=== PATIENT | female | born 1945 | race Caucasian/White ===

== ENCOUNTER → 2017-11-11 | Outpatient (CLI) | payer MEDICARE, OTHER ==
[2017-11-11 12:04] LABS: Protein, Urine Quantitative 12.4 mg/dL (0.0-11.9)
== END | disposition home or self-care (01) ==
LOC: LAB SHORT 07:15 → OLS 07:15
PROVIDERS: Family Medicine
DX: E11.9 Type 2 diabetes mellitus without complications (principal)
CPT/HCPCS: 81050; 84156

== ENCOUNTER 2018-06-10 06:35 | Day surgery (SDC) | payer MEDICARE, OTHER ==
[~2018-06-10] VITALS: Ht 157.5 cm; Wt 81.5 kg
[~2018-06-10 06:35] MED LIST: ALEN70 PO; ATOR10 PO; GAVILAX17 GM PO; GLIM4 PO; LISI5 PO; MELO7.5 PO; Metformin HCl500 MG PO
== END 2018-06-10 09:35 | disposition home or self-care (01) ==
LOC: ORSCSDS 06:35
PROVIDERS: Student in an Organized Health Care Education/Training Program
PROC: 0DBL8ZX Excision of Transverse Colon, Via Natural or Artificial Opening Endoscopic, Diagnostic (ICD-10-PCS; principal; 2018-06-10 08:00)
PROC: 0DBH8ZX Excision of Cecum, Via Natural or Artificial Opening Endoscopic, Diagnostic (ICD-10-PCS; principal; 2018-06-10 08:00)
PROC: 0DBN8ZX Excision of Sigmoid Colon, Via Natural or Artificial Opening Endoscopic, Diagnostic (ICD-10-PCS; principal; 2018-06-10 08:00)
DX: R10.9 Unspecified abdominal pain (principal); K57.30 Diverticulosis of large intestine without perforation or abscess without bleeding; R15.0 Incomplete defecation; D12.0 Benign neoplasm of cecum; D12.3 Benign neoplasm of transverse colon; E11.9 Type 2 diabetes mellitus without complications; I10 Essential (primary) hypertension; Z79.899 Other long term (current) drug therapy
CPT/HCPCS: 82947; 88305; J0330; J1980; J2405; J7120

== ENCOUNTER → 2018-07-23 | Outpatient (CLI) | payer MEDICARE, OTHER | END | disposition home or self-care (01) | LOC: LAB SHORT 11:29 → LAB 11:29 | DX: R19.7 Diarrhea, unspecified (principal) | CPT/HCPCS: 87015; 87045; 87046; 87205; 87493; 87899 ==

== ENCOUNTER → 2018-11-08 | Outpatient (CLI) | payer MEDICARE, OTHER | END | disposition home or self-care (01) | LOC: LAB SHORT 07:50 → LAB 07:50 → PLD 07:50 | DX: L82.1 Other seborrheic keratosis (principal) | CPT/HCPCS: 88305 ==

== ENCOUNTER → 2019-06-24 | Outpatient (CLI) | payer MEDICARE, OTHER | END | disposition home or self-care (01) | LOC: LAB 09:00 → LAB SHORT 09:00 | DX: E11.9 Type 2 diabetes mellitus without complications (principal) | CPT/HCPCS: 82043 ==

== ENCOUNTER 2019-07-29 10:53 | Day surgery (SDC) | payer MEDICARE, OTHER ==
[~2019-07-29] VITALS: Ht 157.5 cm; Wt 78.5 kg
[2019-07-29] MEDS ORDERED: METO25ER PO (11:40)
--- NOTE | 2019-07-29 12:23 | NUR ---
DR STODDARD AT [facility]. IV METOPROLOL ORDERED IV. BR 103/74. HOLDING METOPROLOL PER DR DARDEN. HR 126 BPM ON THREE LEAD TILLER MAN.
--- NOTE | 2019-07-29 12:28 | NUR ---
DR ADELSO VEGAS WITH IV METOPOLOL NOW THAT BP 111/71.
--- NOTE | 2019-07-29 12:54 | NUR ---
07/29/19 1254 Pretty [place]agan History, Chart, Medications and Allergies reviewed before start of procedure. Patient confirms NPO status and agrees with scheduled surgery. 3-LEAD EKG REVIEWED WITH PHYSICIAN PRIOR TO START OF PROCEDURE. PATIENT DETERMINED TO BE ASA APPROPRIATE FOR PROPOFOL SEDATION PRIOR TO START OF PROCEDURE BY DR. STODDARD. MONITOR INTACT WITH CONTINUOUS PULSE OXIMETRY AND INTERMITTENT BP.
--- NOTE | 2019-07-29 14:19 | NUR ---
REPORT GIVEN TO ELSA GALDAMEZ RN.
--- NOTE | 2019-07-29 14:35 | NUR ---
Patient up to Ambulate independently. Gait steady. Discharge instructions reviewed with patient. Patient verbalizes understanding. Copy given to patient to take home. Patient States Post-Procedure ride home has been arranged. Discharged via wheelchair to private car for ride home.
== END 2019-07-29 15:29 | disposition home or self-care (01) ==
LOC: ORSCMMR 10:53 → ORD 12:30 → ORSCMMR 12:30
PROVIDERS: Student in an Organized Health Care Education/Training Program
PROC: 0DBE8ZX Excision of Large Intestine, Via Natural or Artificial Opening Endoscopic, Diagnostic (ICD-10-PCS; principal; 2019-07-29 12:30)
PROC: 0DBH8ZX Excision of Cecum, Via Natural or Artificial Opening Endoscopic, Diagnostic (ICD-10-PCS; principal; 2019-07-29 12:30)
DX: K57.32 Diverticulitis of large intestine without perforation or abscess without bleeding (principal); D12.0 Benign neoplasm of cecum; K64.8 Other hemorrhoids; I10 Essential (primary) hypertension; E11.9 Type 2 diabetes mellitus without complications; E78.5 Hyperlipidemia, unspecified; I48.91 Unspecified atrial fibrillation; Z79.01 Long term (current) use of anticoagulants; Z79.84 Long term (current) use of oral hypoglycemic drugs; Z79.899 Other long term (current) drug therapy
CPT/HCPCS: 82947; 88305; J2704; J7120

== ENCOUNTER 2019-10-12 07:09 | Day surgery (SDC) | payer MEDICARE, OTHER ==
[~2019-10-12] VITALS: Ht 162.6 cm; Wt 83.2 kg
[~2019-10-12 07:09] MED LIST changes: +METO25ER PO; +XARELTO20 MG PO
--- NOTE | 2019-10-12 09:35 | NUR ---
PT AWAKE POST PROCEDURE. DENIES ANY PAIN OR DISCOMFORT. VSS.
--- NOTE | 2019-10-12 09:42 | NUR ---
PT'S SON AT THE BEDSIDE SPEAKING WITH DR MACKEY ABOUT TEST RESULTS AND PLAN OF CARE. PT ABLE TO DRINK ORANGE JUICE WITH NO SWALLOWING DIFFICULTY.
--- NOTE | 2019-10-12 10:00 | NUR ---
IV DC'D, CATH INTACT. PT AWAKE, ALERT, AND ORIENTED. DENIES ANY DISCOMFORT. VERBALIZED UNDERSTANDING OF DC INSTRUCTIONS AND FOLLOW UP INFORMATION. OUT TO CAR VIA WHEELCHAIR, PT'S SON TO GIVE PT A RIDE HOME.
== END 2019-10-12 22:52 | disposition home or self-care (01) ==
LOC: MHTC 07:09
DX: I34.0 Nonrheumatic mitral (valve) insufficiency (principal); I10 Essential (primary) hypertension; E78.5 Hyperlipidemia, unspecified; E11.9 Type 2 diabetes mellitus without complications; Z79.84 Long term (current) use of oral hypoglycemic drugs; Z79.01 Long term (current) use of anticoagulants; Z79.899 Other long term (current) drug therapy
CPT/HCPCS: 76376; 93005; 93010; 93312; 93325; 99152; 99153; J2250; J3010; J7040

== ENCOUNTER 2019-10-25 07:15 | Day surgery (SDC) | payer MEDICARE, OTHER ==
[~2019-10-25] VITALS: Ht 160 cm; Wt 88.0 kg
[~2019-10-25 07:15] MED LIST changes: +CLOB.05TO TOP
--- NOTE | 2019-10-25 10:45 | NUR ---
PT AMBULATES TO AND FROM RESTROOM WITHOUT DIFF. VSS. NADN. CALL LIGHT WIHTIN REACH.
--- NOTE | 2019-10-25 11:15 | NUR ---
PT VERBALIZES UNDERSTANDING WRITTEN AND VERBAL ORDERS. DENIES QUESTIONS. PT R RADIAL SITE REMAINS CLEAR. NO BLEEDING OR HEMATOMA NOTED. WILL CONTINUE TO MONITOR. CALL LIGHT WITHIN REACH.
--- NOTE | 2019-10-25 12:00 | NUR ---
ALL AIR HAS BEEN REMOVED FROM RIGHT WRIST TR BAND. NO BLEEDING, SWELLING, OR BRUISING NOTED TO SITE. SLIGHT TENDERNESS NOTED TO WRIST AROUND SITE. VSS, CALL LIGHT IN REACH. WILL CONTINUE TO MONITOR SITE UNTIL PT IS DISCHARGED HOME.
--- NOTE | 2019-10-25 12:22 | NUR ---
DR SOLORZANO HERE TO DISCUSS PLAN OF CARE. VSS. NADCarlos. PT DRESSES SELF WITHOUT DIFFICULTY.
--- NOTE | 2019-10-25 12:39 | NUR ---
PT TR BAND REMOVED. DOT DRESSING IN PLACE. SMALL HEMATOMA NOTED. MANUAL PRESSURE HELD X 5 MIN. PRESSURE DSG APPLIED TO R RADIAL; WITH INSTRUCTIONS OF WHEN TO REMOVE DSG. TOLERATES WELL. VERBALIZES UNDERSTANDING. R RADIAL SPLINT IN PLACE. PT IV DC'D. CATH INTACT. PRESSURE DSG APPLIED. PT SON HERE FOR TRANSPORT. PT ESCORTED TO CAR VIA WC BY THIS NURSE.
== END 2019-10-25 12:45 | disposition home or self-care (01) ==
LOC: MHTC 07:15
PROC: B201YZZ Plain Radiography of Multiple Coronary Arteries using Other Contrast (ICD-10-PCS; principal; 2019-10-25)
PROC: 4A023N8 Measurement of Cardiac Sampling and Pressure, Bilateral, Percutaneous Approach (ICD-10-PCS; principal; 2019-10-25)
PROC: B206YZZ Plain Radiography of Right and Left Heart using Other Contrast (ICD-10-PCS; principal; 2019-10-25)
DX: I48.91 Unspecified atrial fibrillation (principal); I34.0 Nonrheumatic mitral (valve) insufficiency; I10 Essential (primary) hypertension; R78.5 Finding of other psychotropic drug in blood; I48.92 Unspecified atrial flutter; E11.9 Type 2 diabetes mellitus without complications; E78.5 Hyperlipidemia, unspecified; Z79.01 Long term (current) use of anticoagulants; Z79.84 Long term (current) use of oral hypoglycemic drugs; Z79.899 Other long term (current) drug therapy
CPT/HCPCS: 76937; 93460; 99152; 99153; C1769; C1894; J1644; J2250; J3010; J7030; Q9967

== ENCOUNTER 2020-01-17 09:56 | Day surgery (SDC) | payer MEDICARE, OTHER ==
--- NOTE | 2020-01-17 11:00 | NUR ---
Rec'd a call from Dr. Heard, pt has a critical potassium level and will be admitted to PCU 3 as soon as the room is cleaned. Pt currently in YARELIS with NS infusing. Will transfer up to room PCU 3 as soon as bed is available.
--- NOTE | 2020-01-17 12:44 | NUR ---
PT TRANSFERED TO PCU 3 DUE TO HIGH POTASSIUM. PT TAKEN UP TO NAEBEL CAM RN. REPORT Called at 1753. DR. BRIANA AUSTIN IS GOING UP TO ROOM WITH HIS MOTHER.
[2020-01-17] MEDS ORDERED: ALEN70 PO (12:55)
[2020-01-17] MEDS ORDERED: MOBIC15 MG PO (12:56)
[2020-01-17] MEDS ORDERED: ACET500 PO (12:59)
[2020-01-17] MEDS ORDERED: FURO40 PO (12:59)
[2020-01-17] MEDS ORDERED: POTA10T PO (13:00)
[2020-01-17] MEDS ORDERED: AMIODARONE HCL200 M1 PO (13:02)
[2020-01-17] MEDS ORDERED: Aspir 8181 MG PO (13:02)
== END 2020-01-17 11:26 | disposition home or self-care (01) ==
LOC: ATC 09:56
DX: Z48.812 Encounter for surgical aftercare following surgery on the circulatory system (principal); N28.9 Disorder of kidney and ureter, unspecified; E11.9 Type 2 diabetes mellitus without complications; R06.02 Shortness of breath; I10 Essential (primary) hypertension; E78.5 Hyperlipidemia, unspecified; Z98.890 Other specified postprocedural states; Z79.84 Long term (current) use of oral hypoglycemic drugs; Z79.01 Long term (current) use of anticoagulants; Z79.899 Other long term (current) drug therapy; Z79.82 Long term (current) use of aspirin
CPT/HCPCS: 96360; J7030

== ENCOUNTER 2020-01-17 11:33 | Inpatient (IN) | payer MEDICARE, OTHER ==
[~2020-01-17] VITALS: Ht 157.5 cm; Wt 79.3 kg
[2020-01-17] MEDS ORDERED: ALEN70 PO (12:55)
[2020-01-17] MEDS ORDERED: MOBIC15 MG PO (12:56)
[2020-01-17] MEDS ORDERED: ACET500 PO (12:59)
[2020-01-17] MEDS ORDERED: FURO40 PO (12:59)
[2020-01-17] MEDS ORDERED: POTA10T PO (13:00)
[2020-01-17] MEDS ORDERED: Aspir 8181 MG PO (13:02)
[2020-01-17] MEDS ORDERED: AMIODARONE HCL200 M1 PO (13:02)
[2020-01-17 13:44] LABS: Source, Urine Clean Catch
[2020-01-17 14:36] LABS: Appearance, Urine Hazy (Clear); Blood, Urine 4+ (Neg); Color, Urine Yellow (P-Yellow); Glucose Qualitative, Urine 2+ (Neg); Ketones, Urine 1+ (Neg); Leukocyte Esterase, Urine 3+ (Neg); Nitrite, Urine Neg (Neg); Protein, Urine 2+ (Neg); Specific Gravity, Urine 1.025 (1.003-1.022); Urobilinogen, Urine NORM (Normal)
[2020-01-17 14:46] LABS: CPK Creatine Kinase 66 U/L (26-193); Uric Acid, Blood 8.7 mg/dL (2.6-6.0)
[2020-01-17 14:50] LABS: Bilirubin, Urine 2+ (Neg)
[2020-01-17 14:52] LABS: Bacteria Mod /hpf; Mucus Light (0-Heavy); Squamous Epithelial Cells Few /hpf (Few)
[2020-01-17 15:02] LABS: Albumin, Blood 2.6 g/dL (3.4-5.0); Anion Gap 9 mmol/L (6-16); Blood Urea Nitrogen 76 mg/dL (8-24); Bun/Creatinine Ratio 25.6 (12.0-20.0); CO2, Blood 14 mmol/L (21-32); Calcium, Blood 8.3 mg/dL (8.5-10.1); Chloride, Blood 112 mmol/L (98-108); Creatinine, Blood 2.97 mg/dL (0.40-1.00); Glomerular Filtration Rate 16 (60-); Glucose, Blood 283 mg/dL (70-99); Phosphorus, Blood 4.2 mg/dL (2.5-4.9); Potassium, Blood 6.4 mmol/L (3.5-5.5); Sodium, Blood 135 mmol/L (136-145)
[2020-01-17 18:08] LABS: Albumin, Blood 2.7 g/dL (3.4-5.0); Anion Gap 9 mmol/L (6-16); Blood Urea Nitrogen 74 mg/dL (8-24); Bun/Creatinine Ratio 24.1 (12.0-20.0); CO2, Blood 16 mmol/L (21-32); Calcium, Blood 8.2 mg/dL (8.5-10.1); Chloride, Blood 112 mmol/L (98-108); Creatinine, Blood 3.07 mg/dL (0.40-1.00); Glomerular Filtration Rate 16 (60-); Glucose, Blood 159 mg/dL (70-99); Phosphorus, Blood 4.1 mg/dL (2.5-4.9); Potassium, Blood 5.2 mmol/L (3.5-5.5); Sodium, Blood 137 mmol/L (136-145)
[2020-01-18 04:55] LABS: BASOPHILS ABSOLUTE AUTO 0.01 K/mm3 (0.00-0.23); BASOPHILS PERCENT AUTO 0 % (0-2); Hematocrit 25.5 % (33.0-51.0); LYMPHOCYTES ABSOLUTE AUTO 0.82 K/mm3 (0.84-5.20); LYMPHOCYTES PERCENT AUTO 8 % (21-46); MONOCYTES PERCENT AUTO 7 % (4-13); Mean Corpuscular HGB 30.7 pg (26.0-34.0); Mean Corpuscular HGB Conc 31.4 g/dL (31.5-36.5); Mean Corpuscular Volume 98 fL (80-100); Mean Platelet Volume 9.1 fL (9.1-12.4); Platelet Count 235 K/mm3 (150-400); RDW Coefficient Variation 15.5 % (11.7-14.2); RDW Standard Deviation 55.7 fL (35.1-46.3); Red Blood Cell Count 2.61 M/mm3 (3.80-5.20); White Blood Cell Count 10.83 K/mm3 (4.00-11.30)
[2020-01-18 04:56] LABS: EOSINOPHILS ABSOLUTE AUTO 0.03 K/mm3 (0.00-0.68); EOSINOPHILS PERCENT AUTO 0 % (0-6); IMMATURE GRAN ABSOLUTE AUTO 0.07 K/mm3 (0.00-0.10); IMMATURE GRAN PERCENT AUTO 1 % (0-1); NEUTROPHILS PERCENT AUTO 85 % (41-73)
[2020-01-18 05:23] LABS: Albumin, Blood 2.5 g/dL (3.4-5.0); Albumin/Globulin Ratio 0.8 (0.8-1.8); Bilirubin, Total 0.3 mg/dL (0.1-1.0); Calcium, Blood 7.6 mg/dL (8.5-10.1); Globulin, Blood 3.1 g/dL (2.2-4.0); Potassium, Blood 4.2 mmol/L (3.5-5.5); Total Protein, Blood 5.6 g/dL (6.4-8.2)
[2020-01-18 07:34] LABS: Percent Saturation 23.2 % (15.0-50.0)
[2020-01-18 08:49] LABS: Hematocrit 25.5 % (33.0-51.0); Hemoglobin 8.2 g/dL (11.5-16.0); Mean Corpuscular HGB 31.1 pg (26.0-34.0); Mean Corpuscular HGB Conc 32.2 g/dL (31.5-36.5); Mean Corpuscular Volume 97 fL (80-100); Mean Platelet Volume 8.9 fL (9.1-12.4); Platelet Count 214 K/mm3 (150-400); RDW Coefficient Variation 15.7 % (11.7-14.2); RDW Standard Deviation 55.4 fL (35.1-46.3); Red Blood Cell Count 2.64 M/mm3 (3.80-5.20); White Blood Cell Count 10.56 K/mm3 (4.00-11.30)
[2020-01-18 17:45] LABS: Albumin, Blood 2.2 g/dL (3.4-5.0); Anion Gap 10 mmol/L (6-16); Blood Urea Nitrogen 69 mg/dL (8-24); Bun/Creatinine Ratio 24.5 (12.0-20.0); CO2, Blood 20 mmol/L (21-32); Calcium, Blood 7.2 mg/dL (8.5-10.1); Chloride, Blood 109 mmol/L (98-108); Creatinine, Blood 2.82 mg/dL (0.40-1.00); Glomerular Filtration Rate 17 (60-); Glucose, Blood 108 mg/dL (70-99); Potassium, Blood 3.5 mmol/L (3.5-5.5); Sodium, Blood 139 mmol/L (136-145)
[2020-01-19 04:24] LABS: Hematocrit 21.6 % (33.0-51.0); Hemoglobin 7.1 g/dL (11.5-16.0); Mean Corpuscular HGB 31.6 pg (26.0-34.0); Mean Corpuscular HGB Conc 32.9 g/dL (31.5-36.5); Mean Corpuscular Volume 96 fL (80-100); Platelet Count 171 K/mm3 (150-400); RDW Coefficient Variation 15.5 % (11.7-14.2); RDW Standard Deviation 54.1 fL (35.1-46.3); Red Blood Cell Count 2.25 M/mm3 (3.80-5.20); White Blood Cell Count 11.27 K/mm3 (4.00-11.30)
[2020-01-19 04:43] LABS: Albumin, Blood 2.1 g/dL (3.4-5.0); Albumin/Globulin Ratio 0.7 (0.8-1.8); Bilirubin, Total 0.2 mg/dL (0.1-1.0); Calcium, Blood 7.5 mg/dL (8.5-10.1); Creatinine, Blood 2.56 mg/dL (0.40-1.00); Globulin, Blood 3.1 g/dL (2.2-4.0); Potassium, Blood 3.3 mmol/L (3.5-5.5); Total Protein, Blood 5.2 g/dL (6.4-8.2)
[2020-01-19 05:13] LABS: BAND PERCENT MAN 20 % (0-8); BASOPHILS PERCENT MAN 0 % (0-2); EOSINOPHILS ABSOLUTE MAN 0.11 K/mm3 (0.00-0.68); EOSINOPHILS PERCENT MAN 1 % (0-6); LYMPHOCYTES ABSOLUTE MAN 0.33 K/mm3 (0.84-5.20); LYMPHOCYTES PERCENT MAN 3 % (21-46); MONOCYTES ABSOLUTE MAN 0.45 K/mm3 (0.16-1.47); MONOCYTES PERCENT MAN 4 % (4-13); MYELOCYTE ABSOLUTE MAN 0.11 K/mm3 (0.00-0.00); MYELOCYTE PERCENT MAN 1 % (0-0); NEUTROPHILS ABSOLUTE MAN 10.25 K/mm3 (1.96-9.15); SEG NEUTROPHILS PERCENT MAN 71 % (41-73); TOTAL CELLS COUNTED 100
[2020-01-19 05:52] LABS: Source, Urine Voided
[2020-01-19 06:07] LABS: Bilirubin, Urine Neg (Neg); Blood, Urine 1+ (Neg); Glucose Qualitative, Urine Neg (Neg); Ketones, Urine Neg (Neg); Leukocyte Esterase, Urine Neg (Neg); Nitrite, Urine Neg (Neg); Protein, Urine Neg (Neg); Urobilinogen, Urine NORM (Normal)
[2020-01-19 06:21] LABS: Appearance, Urine Clear (Clear); Color, Urine Yellow (P-Yellow)
[2020-01-19 06:23] LABS: Bacteria Many /hpf; Red Blood Cells, Urine 0-2 /hpf (0-2); Squamous Epithelial Cells Mod /hpf (Few)
[2020-01-19 06:24] LABS: Amorphous Light (0-Heavy)
[2020-01-19 14:14] LABS: Hematocrit 26.4 % (33.0-51.0); Hemoglobin 8.6 g/dL (11.5-16.0); Mean Corpuscular HGB 30.9 pg (26.0-34.0); Mean Corpuscular HGB Conc 32.6 g/dL (31.5-36.5); Mean Corpuscular Volume 95 fL (80-100); Platelet Count 183 K/mm3 (150-400); RDW Coefficient Variation 15.7 % (11.7-14.2); Red Blood Cell Count 2.78 M/mm3 (3.80-5.20); White Blood Cell Count 13.11 K/mm3 (4.00-11.30)
[2020-01-19 14:34] LABS: Albumin, Blood 2.1 g/dL (3.4-5.0); Anion Gap 9 mmol/L (6-16); Blood Urea Nitrogen 55 mg/dL (8-24); Bun/Creatinine Ratio 23.1 (12.0-20.0); CO2, Blood 20 mmol/L (21-32); Calcium, Blood 7.8 mg/dL (8.5-10.1); Chloride, Blood 107 mmol/L (98-108); Creatinine, Blood 2.38 mg/dL (0.40-1.00); Glomerular Filtration Rate 21 (60-); Glucose, Blood 148 mg/dL (70-99); Phosphorus, Blood 2.8 mg/dL (2.5-4.9); Potassium, Blood 3.9 mmol/L (3.5-5.5); Sodium, Blood 136 mmol/L (136-145)
[2020-01-19 14:39] LABS: BAND PERCENT MAN 13 % (0-8); BASOPHILS PERCENT MAN 0 % (0-2); EOSINOPHILS ABSOLUTE MAN 0.13 K/mm3 (0.00-0.68); EOSINOPHILS PERCENT MAN 1 % (0-6); LYMPHOCYTES ABSOLUTE MAN 1.57 K/mm3 (0.84-5.20); LYMPHOCYTES PERCENT MAN 12 % (21-46); MONOCYTES ABSOLUTE MAN 0.52 K/mm3 (0.16-1.47); MONOCYTES PERCENT MAN 4 % (4-13); NEUTROPHILS ABSOLUTE MAN 10.88 K/mm3 (1.96-9.15); SEG NEUTROPHILS PERCENT MAN 70 % (41-73); TOTAL CELLS COUNTED 100
[2020-01-20 05:32] LABS: BASOPHILS ABSOLUTE AUTO 0.03 K/mm3 (0.00-0.23); BASOPHILS PERCENT AUTO 0 % (0-2); EOSINOPHILS ABSOLUTE AUTO 0.09 K/mm3 (0.00-0.68); EOSINOPHILS PERCENT AUTO 1 % (0-6); Hematocrit 26.3 % (33.0-51.0); Hemoglobin 8.6 g/dL (11.5-16.0); IMMATURE GRAN ABSOLUTE AUTO 0.56 K/mm3 (0.00-0.10); IMMATURE GRAN PERCENT AUTO 5 % (0-1); LYMPHOCYTES ABSOLUTE AUTO 1.13 K/mm3 (0.84-5.20); LYMPHOCYTES PERCENT AUTO 9 % (21-46); MONOCYTES ABSOLUTE AUTO 1.01 K/mm3 (0.16-1.47); MONOCYTES PERCENT AUTO 8 % (4-13); Mean Corpuscular HGB 31.2 pg (26.0-34.0); Mean Corpuscular HGB Conc 32.7 g/dL (31.5-36.5); Mean Corpuscular Volume 95 fL (80-100); Mean Platelet Volume 9.4 fL (9.1-12.4); NEUTROPHILS ABSOLUTE AUTO 9.63 K/mm3 (1.96-9.15); NEUTROPHILS PERCENT AUTO 77 % (41-73); Platelet Count 195 K/mm3 (150-400); RDW Coefficient Variation 16.4 % (11.7-14.2); RDW Standard Deviation 56.8 fL (35.1-46.3); Red Blood Cell Count 2.76 M/mm3 (3.80-5.20); White Blood Cell Count 12.45 K/mm3 (4.00-11.30)
[2020-01-20 05:54] LABS: Albumin, Blood 2.3 g/dL (3.4-5.0); Albumin/Globulin Ratio 0.6 (0.8-1.8); Bilirubin, Total 0.3 mg/dL (0.1-1.0); Bun/Creatinine Ratio 22.4 (12.0-20.0); Calcium, Blood 7.9 mg/dL (8.5-10.1); Creatinine, Blood 2.05 mg/dL (0.40-1.00); Globulin, Blood 3.6 g/dL (2.2-4.0); Potassium, Blood 4.1 mmol/L (3.5-5.5); Total Protein, Blood 5.9 g/dL (6.4-8.2)
[2020-01-20 13:09] LABS: ANA DIRECT Negative (Negative); ANTIMYELOPEROXIDASE (MPO) ABS <9.0 U/mL (0.0-9.0); ANTIPROTEINASE 3 (PR-3) ABS <3.5 U/mL (0.0-3.5); ATYPICAL PANCA <1:20 titer (Neg:<1:20); CYTOPLASMIC (C-ANCA) <1:20 titer (Neg:<1:20); PERINUCLEAR (P-ANCA) <1:20 titer (Neg:<1:20)
[2020-01-20 15:09] LABS: A/G RATIO 1.2 (0.7-1.7); ALBUMIN 2.6 g/dL (2.9-4.4); ALPHA-1-GLOBULIN 0.3 g/dL (0.0-0.4); ALPHA-2-GLOBULIN 0.8 g/dL (0.4-1.0); BETA GLOBULIN 0.6 g/dL (0.7-1.3); GAMMA GLOBULIN 0.5 g/dL (0.4-1.8); GLOBULIN, TOTAL 2.2 g/dL (2.2-3.9); IMMUNOGLOBULIN A, QN, SERUM 116 mg/dL (64-422); IMMUNOGLOBULIN G, QN, SERUM 539 mg/dL (586-1602); IMMUNOGLOBULIN M, QN, SERUM 63 mg/dL (26-217); M-SPIKE Not Observed g/dL (Not Observed); PROTEIN, TOTAL, SERUM 4.8 g/dL (6.0-8.5)
[2020-01-21 05:08] LABS: BASOPHILS ABSOLUTE AUTO 0.05 K/mm3 (0.00-0.23); BASOPHILS PERCENT AUTO 0 % (0-2); EOSINOPHILS ABSOLUTE AUTO 0.14 K/mm3 (0.00-0.68); EOSINOPHILS PERCENT AUTO 1 % (0-6); Hematocrit 27.5 % (33.0-51.0); Hemoglobin 8.7 g/dL (11.5-16.0); IMMATURE GRAN PERCENT AUTO 4 % (0-1); LYMPHOCYTES PERCENT AUTO 12 % (21-46); MONOCYTES ABSOLUTE AUTO 1.23 K/mm3 (0.16-1.47); MONOCYTES PERCENT AUTO 11 % (4-13); Mean Corpuscular HGB 30.4 pg (26.0-34.0); Mean Corpuscular HGB Conc 31.6 g/dL (31.5-36.5); Mean Corpuscular Volume 96 fL (80-100); Mean Platelet Volume 9.2 fL (9.1-12.4); NEUTROPHILS ABSOLUTE AUTO 8.12 K/mm3 (1.96-9.15); NEUTROPHILS PERCENT AUTO 72 % (41-73); Platelet Count 200 K/mm3 (150-400); RDW Coefficient Variation 16.3 % (11.7-14.2); RDW Standard Deviation 58.2 fL (35.1-46.3); Red Blood Cell Count 2.86 M/mm3 (3.80-5.20); White Blood Cell Count 11.34 K/mm3 (4.00-11.30)
[2020-01-21 05:38] LABS: Albumin, Blood 2.2 g/dL (3.4-5.0); Albumin/Globulin Ratio 0.6 (0.8-1.8); Bilirubin, Total 0.3 mg/dL (0.1-1.0); Bun/Creatinine Ratio 20.6 (12.0-20.0); Calcium, Blood 7.9 mg/dL (8.5-10.1); Creatinine, Blood 1.65 mg/dL (0.40-1.00); Globulin, Blood 3.7 g/dL (2.2-4.0); Potassium, Blood 4.3 mmol/L (3.5-5.5); Total Protein, Blood 5.9 g/dL (6.4-8.2)
[2020-01-22 09:59] LABS: Hematocrit 28.3 % (33.0-51.0); Hemoglobin 8.8 g/dL (11.5-16.0); Mean Corpuscular HGB 30.4 pg (26.0-34.0); Mean Corpuscular HGB Conc 31.1 g/dL (31.5-36.5); Mean Corpuscular Volume 98 fL (80-100); Mean Platelet Volume 8.9 fL (9.1-12.4); Platelet Count 196 K/mm3 (150-400); RDW Coefficient Variation 16.2 % (11.7-14.2); Red Blood Cell Count 2.89 M/mm3 (3.80-5.20); White Blood Cell Count 10.48 K/mm3 (4.00-11.30)
[2020-01-22 10:13] LABS: Bun/Creatinine Ratio 18.3 (12.0-20.0); Calcium, Blood 7.9 mg/dL (8.5-10.1); Creatinine, Blood 1.42 mg/dL (0.40-1.00); Potassium, Blood 4.7 mmol/L (3.5-5.5)
[2020-01-23 09:51] LABS: Bun/Creatinine Ratio 16.2 (12.0-20.0); Calcium, Blood 8.2 mg/dL (8.5-10.1); Creatinine, Blood 1.36 mg/dL (0.40-1.00); Potassium, Blood 4.6 mmol/L (3.5-5.5)
[2020-01-24 05:47] LABS: Hematocrit 28.6 % (33.0-51.0); Mean Corpuscular HGB 30.4 pg (26.0-34.0); Mean Corpuscular HGB Conc 31.5 g/dL (31.5-36.5); Mean Corpuscular Volume 97 fL (80-100); Mean Platelet Volume 9.3 fL (9.1-12.4); Platelet Count 219 K/mm3 (150-400); RDW Coefficient Variation 15.9 % (11.7-14.2); RDW Standard Deviation 55.9 fL (35.1-46.3); Red Blood Cell Count 2.96 M/mm3 (3.80-5.20); White Blood Cell Count 8.91 K/mm3 (4.00-11.30)
[2020-01-24 05:53] LABS: Bun/Creatinine Ratio 18.9 (12.0-20.0); Calcium, Blood 8.2 mg/dL (8.5-10.1); Creatinine, Blood 1.32 mg/dL (0.40-1.00); Potassium, Blood 4.5 mmol/L (3.5-5.5)
[2020-01-24] MEDS ORDERED: ATOR20 PO (10:37)
[2020-01-24] MEDS ORDERED: DOCU100 PO (10:38)
[2020-01-24] MEDS ORDERED: BASAGLAR K100 UNIT/1 SC (10:39)
[2020-01-24] MEDS ORDERED: INSULIN LI100 UNIT/6 (10:43)
[2020-01-24] MEDS ORDERED: NYAMYC15 G1 TOP (10:44)
[2020-01-24] MEDS ORDERED: TRAM50 PO (10:45)
== END 2020-01-24 13:01 | DRG 683 ==
LOC: PCU 11:33 → MEDS 11:55
PROVIDERS: Internal Medicine; ADMIT Internal Medicine Interventional Cardiology
PROC: 30233N1 Transfusion of Nonautologous Red Blood Cells into Peripheral Vein, Percutaneous Approach (ICD-10-PCS; principal; 2020-01-19)
DX: N17.9 Acute kidney failure, unspecified (principal); S22.31XA Fracture of one rib, right side, initial encounter for closed fracture; E87.2 Acidosis; N39.0 Urinary tract infection, site not specified; Z20.828 Contact with and (suspected) exposure to other viral communicable diseases; L89.322 Pressure ulcer of left buttock, stage 2; E87.5 Hyperkalemia; D63.8 Anemia in other chronic diseases classified elsewhere; E11.649 Type 2 diabetes mellitus with hypoglycemia without coma; E78.5 Hyperlipidemia, unspecified; E86.0 Dehydration; E87.70 Fluid overload, unspecified; I44.0 Atrioventricular block, first degree; I12.9 Hypertensive chronic kidney disease with stage 1 through stage 4 chronic kidney disease, or unspecified chronic kidney disease; E11.22 Type 2 diabetes mellitus with diabetic chronic kidney disease; N18.3 Chronic kidney disease, stage 3 (moderate); I48.0 Paroxysmal atrial fibrillation; I95.9 Hypotension, unspecified; Z95.2 Presence of prosthetic heart valve; M81.0 Age-related osteoporosis without current pathological fracture; R54 Age-related physical debility; X58.XXXA Exposure to other specified factors, initial encounter; K59.00 Constipation, unspecified; B96.20 Unspecified Escherichia coli [E. coli] as the cause of diseases classified elsewhere
CPT/HCPCS: 36415; 36430; 51701; 71045; 74176; 76770; 80048; 80053; 80069; 81001; 82306; 82330; 82550; 82728; 82784; 82947; 83520; 83540; 83550; 83605; 83735; 83880; 84100; 84132; 84165; 84550; 85025; 85027; 86256; 86334; 86850; 86900; 86901; 86923; 87040; 87077; 87086; 87186; 93005; 93010; 97110; 97116; 97162; 97530; A9270; A9270-GY; J0696; J1644; J1815; J2405; J7030; J7050; J7070; J7799; P9016; U0002

== ENCOUNTER → 2020-02-28 | Outpatient (CLI) | payer MEDICARE, OTHER ==
[~2020-02-28] MED LIST changes: +ACET500 PO; +AMIODARONE HCL200 M1 PO; +ATOR20 PO; +Aspir 8181 MG PO; +BASAGLAR K100 UNIT/1 SC; +DOCU100 PO; +FURO40 PO; +INSULIN LI100 UNIT/6; +MOBIC15 MG PO; +NYAMYC15 G1 TOP; +POTA10T PO; +TRAM50 PO
== END | disposition home or self-care (01) ==
LOC: LAB 10:43 → LAB SHORT 10:43
DX: E11.9 Type 2 diabetes mellitus without complications (principal); L98.429 Non-pressure chronic ulcer of back with unspecified severity
CPT/HCPCS: 87070; 87205

== ENCOUNTER → 2020-07-09 | Outpatient (CLI) | payer MEDICARE, OTHER | END | disposition home or self-care (01) | LOC: LAB 17:53 → LAB SHORT 17:53 | DX: Q82.6 Congenital sacral dimple (principal) | CPT/HCPCS: 87070; 87075; 87205 ==

== ENCOUNTER 2021-05-06 16:34 | Inpatient (IN) | payer MEDICARE, OTHER ==
[~2021-05-06] VITALS: Ht 162.6 cm; Wt 78.6 kg
[~2021-05-06 16:34] MED LIST changes: -ATOR20 PO; +FERSU300 PO; +PROM25 PO; +ROXICODONE5 MG PO; +SULTRIDS PO; -XARELTO20 MG PO
[2021-05-06 17:17] LABS: BASOPHILS ABSOLUTE AUTO 0.07 K/mm3 (0.00-0.23); BASOPHILS PERCENT AUTO 1 % (0-2); EOSINOPHILS ABSOLUTE AUTO 0.09 K/mm3 (0.00-0.68); EOSINOPHILS PERCENT AUTO 1 % (0-6); Hematocrit 27.6 % (33.0-51.0); Hemoglobin 8.9 g/dL (11.5-16.0); IMMATURE GRAN ABSOLUTE AUTO 0.18 K/mm3 (0.00-0.10); IMMATURE GRAN PERCENT AUTO 1 % (0-1); LYMPHOCYTES ABSOLUTE AUTO 1.76 K/mm3 (0.84-5.20); LYMPHOCYTES PERCENT AUTO 12 % (21-46); MONOCYTES PERCENT AUTO 12 % (4-13); Mean Corpuscular HGB 30.8 pg (26.0-34.0); Mean Corpuscular HGB Conc 32.2 g/dL (31.5-36.5); Mean Corpuscular Volume 96 fL (80-100); Mean Platelet Volume 8.7 fL (9.1-12.4); NEUTROPHILS ABSOLUTE AUTO 10.69 K/mm3 (1.96-9.15); NEUTROPHILS PERCENT AUTO 74 % (41-73); Platelet Count 545 K/mm3 (150-400); RDW Coefficient Variation 14.6 % (11.7-14.2); RDW Standard Deviation 50.5 fL (35.1-46.3); Red Blood Cell Count 2.89 M/mm3 (3.80-5.20); White Blood Cell Count 14.49 K/mm3 (4.00-11.30)
[2021-05-06 17:27] LABS: Source, Urine Catheter
[2021-05-06 17:29] LABS: Acetaminophen, Random <2.0 ug/mL (10.0-30.0); Alanine Aminotransfer (ALT/SGP 32 U/L (12-78); Albumin, Blood 3.1 g/dL (3.4-5.0); Albumin/Globulin Ratio 0.8 (0.8-1.8); Alk Phos 122 U/L (50-136); Anion Gap 12 mmol/L (6-16); Aspartate Aminotrans (AST/SGOT 24 U/L (12-37); Bilirubin, Total 0.8 mg/dL (0.1-1.0); Blood Urea Nitrogen 33 mg/dL (8-24); Bun/Creatinine Ratio 22.9 (12.0-20.0); CO2, Blood 20 mmol/L (21-32); Calcium, Blood 9.7 mg/dL (8.5-10.1); Chloride, Blood 102 mmol/L (98-108); Creatinine, Blood 1.44 mg/dL (0.40-1.00); Globulin, Blood 4.1 g/dL (2.2-4.0); Glomerular Filtration Rate 35 (60-); Glucose, Blood 174 mg/dL (70-99); Potassium, Blood 4.3 mmol/L (3.5-5.5); Salicylate <1.7 mg/dL (2.8-20.0); Sodium, Blood 134 mmol/L (136-145); Total Protein, Blood 7.2 g/dL (6.4-8.2); Troponin I <0.015 ng/mL (0.000-0.040)
[2021-05-06 17:33] LABS: Appearance, Urine Clear (Clear); Bilirubin, Urine Neg (Neg); Blood, Urine 5+ (Neg); Color, Urine Yellow (P-Yellow); Glucose Qualitative, Urine Neg (Neg); Ketones, Urine Neg (Neg); Leukocyte Esterase, Urine 1+ (Neg); Nitrite, Urine Neg (Neg); Protein, Urine 1+ (Neg); Urobilinogen, Urine NORM (Normal)
[2021-05-06 18:00] LABS: Amorphous Light (0-Heavy); Bacteria Few /hpf; Squamous Epithelial Cells Few /hpf (Few)
[2021-05-06] MEDS ORDERED: ACET500 PO (20:49)
[2021-05-06] MEDS ORDERED: ATOR10 PO (20:51)
[2021-05-06] MEDS ORDERED: Trulicity SC (20:52)
[2021-05-06] MEDS ORDERED: Lopressor 25 mg25 MG PO (20:54)
[2021-05-06] MEDS ORDERED: XARELTO10 M1 PO (20:55)
--- NOTE | 2021-05-06 23:43 | NUR ---
REVEIVED PT FROM ER, ALERT BUT NOT ORIENTED, NOT ABLE TO ANSWER INTAKE QUESTIONS. PT IV WNL AND INFUSING NS AND ABT'S. PT MAKES NO COMPLAINTS AT THIS TIME. WILL CONTINUE WITH INTAKE QUESTIONS IN THE MORNING WITH FAMILY.
[2021-05-07 05:39] LABS: Hematocrit 22.7 % (33.0-51.0); Hemoglobin 7.3 g/dL (11.5-16.0); Mean Corpuscular HGB 31.5 pg (26.0-34.0); Mean Corpuscular HGB Conc 32.2 g/dL (31.5-36.5); Mean Corpuscular Volume 98 fL (80-100); Mean Platelet Volume 8.8 fL (9.1-12.4); Platelet Count 430 K/mm3 (150-400); RDW Coefficient Variation 14.8 % (11.7-14.2); RDW Standard Deviation 51.9 fL (35.1-46.3); Red Blood Cell Count 2.32 M/mm3 (3.80-5.20); White Blood Cell Count 13.79 K/mm3 (4.00-11.30)
--- NOTE | 2021-05-07 05:43 | NUR ---
PT HAS SLEPT FOR MOST OF THE NIGHT, REMAINS CONFUSED AND NOT BLE TO ANSWER INTAKE QUESTIONS. ADMISSION ASSESSMENT COMPLETE. IV ABTS INFUSING AND BOTH SITES WNL. PT ABLE TO SHIFT WEIGHT IN BED, OTHERWISE ON BEDREST. NO OTHER CHANGES TO REPORT. BED IN LOW POSITION AND CALL LIGHT WITHIN REACH. STAFF WILL CONTINUE TO MONITOR.
[2021-05-07 06:22] LABS: Bun/Creatinine Ratio 20.4 (12.0-20.0); Calcium, Blood 8.2 mg/dL (8.5-10.1); Creatinine, Blood 1.47 mg/dL (0.40-1.00); Potassium, Blood 4.7 mmol/L (3.5-5.5)
--- NOTE | 2021-05-07 07:58 | NUR ---
PT HAS STARTED SHIFT VERY CONFUSED AND HAS TRIED TO CRAWL OUT OF BED.PT WAS REDIRECTED AND SETTLED BACK TO BED. BP WAS LOW AT 94/60 AND APPEARS TO HAVE BEEN TRENDING DOWN SINCE SHE ARRIVED. DR DWYER WAS NOTIFIED AND FLUID BOLUS WAS ORDERED TO EMAR. WILL CONTINUE TO MONITOR CLOSELY.
[2021-05-07 10:18] LABS: Hemoglobin 7.7 g/dL (11.5-16.0); Mean Corpuscular HGB 31.3 pg (26.0-34.0); Mean Corpuscular HGB Conc 32.1 g/dL (31.5-36.5); Mean Corpuscular Volume 98 fL (80-100); Mean Platelet Volume 8.5 fL (9.1-12.4); Platelet Count 417 K/mm3 (150-400); RDW Coefficient Variation 14.6 % (11.7-14.2); RDW Standard Deviation 51.4 fL (35.1-46.3); Red Blood Cell Count 2.46 M/mm3 (3.80-5.20); White Blood Cell Count 13.54 K/mm3 (4.00-11.30)
--- NOTE | 2021-05-07 15:44 | NUR ---
Pt. was in bed but alert. Son of pt. was present. Pt. not interested in spiritual care. Pastoral prayer was declined.
[2021-05-07 16:48] LABS: Adenovirus Not Detected (NOT DETECT); Bordetella pertussis Not Detected (NOT DETECT); Chlamydophila pneumoniae Not Detected (NOT DETECT); Coronavirus 229E Not Detected (NOT DETECT); Coronavirus HKU1 Not Detected (NOT DETECT); Coronavirus NL63 Not Detected (NOT DETECT); Coronavirus OC43 Not Detected (NOT DETECT); Human Metapneumovirus Not Detected (NOT DETECT); Human Rhinovirus/Enterovirus Not Detected (NOT DETECT); Influenza A/2009-H1 Not Detected (NOT DETECT); Influenza A/H1 Not Detected (NOT DETECT); Influenza A/H3 Not Detected (NOT DETECT); Influenza B Not Detected (NOT DETECT); Mycoplasma pneumoniae Not Detected (NOT DETECT); Parainfluenza Virus 1 Not Detected (NOT DETECT); Parainfluenza Virus 2 Not Detected (NOT DETECT); Parainfluenza Virus 3 Not Detected (NOT DETECT); Parainfluenza Virus 4 Not Detected (NOT DETECT); Respiratory Syncytial Virus Not Detected (NOT DETECT); SARS-Cov-2 (COVID-19), BioFire Not Detected (NOT DETECT)
--- NOTE | 2021-05-07 17:19 | NUR ---
PT AOX1 AND COOPERATIVE OF CARE. PT STILL VERY TIRED AND CONFUSED HAS MADE MILD PROGRESS THROUGHOUT THE SHIFT. PT WAS ABLE TO TRANSFER WELL WITH GAITBELT AND WALKER WITH PT AND AID TODAY. BED ALARM AND CHAIR ALARM USED PT IS IMPULSIVE AND WILL NOT YET USE CALL LIGHT. CALL LIGHT WITHIN REACH WILL CONTINUE TO MONITOR.
[2021-05-08 05:36] LABS: Hematocrit 21.8 % (33.0-51.0); Hemoglobin 6.7 g/dL (11.5-16.0); Mean Corpuscular HGB 30.5 pg (26.0-34.0); Mean Corpuscular HGB Conc 30.7 g/dL (31.5-36.5); Mean Corpuscular Volume 99 fL (80-100); Mean Platelet Volume 8.8 fL (9.1-12.4); Platelet Count 457 K/mm3 (150-400); RDW Coefficient Variation 14.8 % (11.7-14.2); RDW Standard Deviation 53.2 fL (35.1-46.3); White Blood Cell Count 13.84 K/mm3 (4.00-11.30)
--- NOTE | 2021-05-08 06:16 | NUR ---
A&OX4, PATIENT MENTATION CLEARING SIGNIFICANTLY, DRESSING TO L KNEE/HO CDI. BED ALARM ON, CALL LIGHT WITHIN REACH.
[2021-05-08 06:27] LABS: Bun/Creatinine Ratio 23.6 (12.0-20.0); Calcium, Blood 7.8 mg/dL (8.5-10.1); Creatinine, Blood 1.23 mg/dL (0.40-1.00); Potassium, Blood 4.3 mmol/L (3.5-5.5)
[2021-05-08 10:12] LABS: U Amphetamine Screen Not Detected; U Barbituate Screen Not Detected; U Benzodiazapine Screen Not Detected; U Buprenorphine Screen Not Detected; U Cannabinoids Screen Not Detected; U Cocaine Screen Not Detected; U Methadone Screen Not Detected; U Methamphetamine Screen Not Detected; U Opiates Screen Not Detected; U Oxycodone Screen Not Detected; U Phencyclidine Screen Not Detected; U Propoxyphene Screen Not Detected
[2021-05-08] MEDS ORDERED: TRULICITY0.75 MG/01 SC (16:24)
[2021-05-08] MEDS ORDERED: METO25 PO (16:26)
[2021-05-08] MEDS ORDERED: XARELTO15 MG PO (16:27)
[2021-05-08] MEDS ORDERED: ATOR10 PO (16:27)
[2021-05-08] MEDS ORDERED: FEROSUL325 M1 PO (16:31)
[2021-05-08 17:16] LABS: Hematocrit 26.1 % (33.0-51.0); Hemoglobin 8.4 g/dL (11.5-16.0); Mean Corpuscular HGB 30.7 pg (26.0-34.0); Mean Corpuscular HGB Conc 32.2 g/dL (31.5-36.5); Mean Corpuscular Volume 95 fL (80-100); Mean Platelet Volume 8.3 fL (9.1-12.4); Platelet Count 443 K/mm3 (150-400); Red Blood Cell Count 2.74 M/mm3 (3.80-5.20); White Blood Cell Count 12.07 K/mm3 (4.00-11.30)
--- NOTE | 2021-05-08 18:33 | NUR ---
DAY SHIFT SUMMARY PLEASANT PT, COOPERATIVE WITH CARE. RECEIVED 1 UNIT PRBC TODAY, TOLLERATED WELL WITHOUT ISSUE. A/O X4, AMBULATES WITH WALKER AND STANDBY ASSIST TO BATHROOM. CALL LIGHT WITHIN REACH OF PT. NO OTHER CHANGES WITH PT THIS SHIFT.
--- NOTE | 2021-05-09 04:41 | NUR ---
PATIENT HAD AN UNEVENTFUL NIGHT. SHE CALLED A COUPLE TIMES T/O THE NIGHT FOR SBA SHE AMBULATED TO THE BATHROOM AND BACK TO BED. SHE APPEARS TO HAVE A PRETTY STEADY GAIT USING FWW. AQUACEL DRESSING TO HER L KNEE IS C/D/I WITHOUT STRIKE-THRU BLOOD/DRAINAGE NOTED. PLEASANT AND COOPERATIVE WITH CARE AND CALLS APPROPRIATELY FOR STAFF ASSIST NEEDED. CALL LIGHT WITHIN REACH.
[2021-05-09 05:07] LABS: Hemoglobin 8.4 g/dL (11.5-16.0); Mean Corpuscular HGB 30.9 pg (26.0-34.0); Mean Corpuscular HGB Conc 32.3 g/dL (31.5-36.5); Mean Corpuscular Volume 96 fL (80-100); Mean Platelet Volume 8.5 fL (9.1-12.4); Platelet Count 454 K/mm3 (150-400); RDW Coefficient Variation 15.4 % (11.7-14.2); RDW Standard Deviation 53.3 fL (35.1-46.3); Red Blood Cell Count 2.72 M/mm3 (3.80-5.20); White Blood Cell Count 11.74 K/mm3 (4.00-11.30)
[2021-05-09] MEDS ORDERED: AMOCLA875 PO (09:06)
--- NOTE | 2021-05-09 10:00 | NUR ---
PT DISCHARGED TO HOME, PT VERBALIZED UNDERSTANDING OF DISCHARGE INSTRUCTIONS REGARDING MEDS AND FOLLOW UP, PT TAKEN OUT SAFELY VIA WHEELCHAIR
== END 2021-05-09 09:56 | disposition home or self-care (01) | DRG 871 ==
LOC: ER 16:34 → ERHOLD 18:48 → MEDS 18:48
PROVIDERS: Emergency Medicine; Hospitalist; ADMIT Internal Medicine
DX: A41.9 Sepsis, unspecified organism (principal); G92.8 Other toxic encephalopathy; I48.20 Chronic atrial fibrillation, unspecified; E87.2 Acidosis; N17.9 Acute kidney failure, unspecified; Z20.822 Contact with and (suspected) exposure to COVID-19; R65.20 Severe sepsis without septic shock; E11.22 Type 2 diabetes mellitus with diabetic chronic kidney disease; N18.30 Chronic kidney disease, stage 3 unspecified; E78.00 Pure hypercholesterolemia, unspecified; D50.9 Iron deficiency anemia, unspecified; D63.1 Anemia in chronic kidney disease; M19.90 Unspecified osteoarthritis, unspecified site; E86.0 Dehydration; Z96.652 Presence of left artificial knee joint; Z87.19 Personal history of other diseases of the digestive system; Z88.8 Allergy status to other drugs, medicaments and biological substances; Z79.01 Long term (current) use of anticoagulants; Z79.899 Other long term (current) drug therapy
CPT/HCPCS: 0202U; 36415; 36430; 51701; 70450; 71045; 73560-LT; 80048; 80053; 81001; 82140; 82607; 82746; 82947; 83605; 84145; 84484; 85025; 85027; 85651; 86140; 86850; 86900; 86901; 86923; 87040; 87086; 93005; 93010; 96365; 97110; 97112; 97162; 97166; 97535; 99285-25; A9270; G0480; J0456; J0696; J7030; J7040; J7050; P9016

== ENCOUNTER 2021-08-29 09:22 | Day surgery (SDC) | payer MEDICARE, OTHER ==
[~2021-08-29] VITALS: Ht 157.5 cm; Wt 79.6 kg
[~2021-08-29 09:22] MED LIST changes: +AMOCLA875 PO; +FEROSUL325 M1 PO; +Lopressor 25 mg25 MG PO; +METO25 PO; +TRULICITY0.75 MG/01 SC; +Trulicity SC; +XARELTO10 M1 PO; +XARELTO15 MG PO
== END 2021-08-29 12:05 | disposition home or self-care (01) ==
LOC: ORSCSDS 09:22
PROVIDERS: Student in an Organized Health Care Education/Training Program
PROC: 0DBH8ZX Excision of Cecum, Via Natural or Artificial Opening Endoscopic, Diagnostic (ICD-10-PCS; principal; 2021-08-29 10:45)
PROC: 0DBN8ZX Excision of Sigmoid Colon, Via Natural or Artificial Opening Endoscopic, Diagnostic (ICD-10-PCS; principal; 2021-08-29 10:45)
DX: Z12.11 Encounter for screening for malignant neoplasm of colon (principal); K63.5 Polyp of colon; K57.30 Diverticulosis of large intestine without perforation or abscess without bleeding; Z86.010 Personal history of colon polyps; E11.9 Type 2 diabetes mellitus without complications; I10 Essential (primary) hypertension; I25.10 Atherosclerotic heart disease of native coronary artery without angina pectoris; Z79.84 Long term (current) use of oral hypoglycemic drugs; Z79.899 Other long term (current) drug therapy; Z79.01 Long term (current) use of anticoagulants
CPT/HCPCS: 82947; 88305; J2704; J7120

== ENCOUNTER → 2023-02-03 | Outpatient (CLI) | payer MEDICARE, OTHER ==
[~2023-02-03] MED LIST changes: +Dilaudid 2 mg Ta2 MG PO; +PANT20 PO; +PROM12.5S PO
== END ==
LOC: LAB 09:00 → LAB SHORT 09:00
DX: L03.019 Cellulitis of unspecified finger (principal)
CPT/HCPCS: 87070; 87205